=== PATIENT | male | born 1980 | race Caucasian/White ===

== ENCOUNTER 2020-06-24 12:27 | Inpatient (IN) | payer OTHER ==
[~2020-06-24] VITALS: Ht 167.6 cm; Wt 170.3 kg
--- NOTE | 2020-06-24 12:49 | NUR ---
RECEIVED FROM TRIAGE WITH C/O CELLULITIS OF BLE AND PAIN AT UMBILICUS/HERNIA. NOTED OPEN WOUND ON LEFT LOWER LEG AND CRUSTY/WHITE PATCHES ON BACK OF RIGHT LEG. BILATERAL LOWER LEGS ARE RED WITH COBBLESTONE APPEARANCE AND DRAIN ACCORDING TO PT. IV SITED IN LEFT HAND WITH 22G. LABS DRAWN. WOUND CULTURE OBTAINED.
[2020-06-24 12:50] VITALS: BP 141/84
[2020-06-24] MEDS ORDERED: LISINOPRIL2.5 MG (12:52)
[2020-06-24 13:49] LABS: CALC OSMOLALITY 278 mosm/kg (275-300); CALCIUM 8.9 mg/dL (8.5-10.1); CHLORIDE - SERUM 100 mmol/L (98-107); CREATININE - SERUM 1.1 mg/dL (0.6-1.3); GLUCOSE 192 mg/dL (74-106); POTASSIUM - SERUM 4.2 mmol/L (3.5-5.1); SODIUM 137 mmol/L (136-145); UREA NITROGEN 13 mg/dL (7-18); eGFR NON AFRICAN AMERICAN 78 mL/min (90-120)
[2020-06-24 13:55] LABS: BASOPHILS 0.5 % (0-2); EOSINOPHILS 6.3 % (0-7); HEMATOCRIT 41.8 % (42.0-54.0); HEMOGLOBIN 13.3 g/dL (13.5-17.5); IMMATURE GRANULOCYTES 0.5 % (0-5); LYMPHOCYTE ABS# 0.88 10x3/uL (1.32-3.57); LYMPHOCYTES 13.9 % (15-50); MCH 28.4 pg (26.0-34.0); MCHC 31.8 g/dL (31.0-37.0); MCV 89.3 fL (80.0-100.0); MEAN PLATELET VOLUME 10.9 fL (7.4-10.4); MONOCYTES 11.7 % (2-11); NEUTROPHIL ABS# 4.23 10x3/uL (1.78-5.38); NEUTROPHILS 67.1 % (40-80); PLATELET COUNT 208 10x3/uL (130-400); RBC 4.68 10x6/uL (4.20-6.10); RDW 14.4 % (11.5-14.5); WBC 6.3 10x3/uL (4.8-10.8)
[2020-06-24 13:56] LABS: ALBUMIN 3.3 g/dL (3.4-5.0); ALKALINE PHOSPHATASE 105 U/L (30-120); ALT (SGPT) 46 U/L (10-68); BILIRUBIN - TOTAL 0.36 mg/dL (0.2-1.3); C-REACTIVE PROTEIN 4.1 mg/dL (0.0-0.9); PROTEIN - SERUM 7.4 g/dL (6.4-8.2)
[2020-06-24 14:10] LABS: INR 1.05 (0.85-1.17); PROTIME 12.7 SECONDS (11.6-15.0)
--- NOTE | 2020-06-24 14:44 | NUR ---
VANC 1.5GM ADMINISTERED VIA IV PUMP. VANC 1GM WAS D/C'D
[2020-06-24 16:09] LABS: ERYTHROCYTE SEDIMENTATION RATE 15 mm/hr (0-15)
[2020-06-24 16:12] VITALS: BP 125/50; Ht 167.6 cm; Wt 170.3 kg
--- NOTE | 2020-06-24 16:57 | NUR ---
RCVED PT FROM ER VIA STRETCHER AND HOSPITAL STAFF. ALERT AND ORIENTED. IV LOCATED TO LEFT HAND CURRENTLY RUNNING NS @ 100ML. V/S STABLE. NO CURRENT S/S OF DISTRESS, DENIES CURRENT NEEDS, WILL CONT TO MONITOR.
[2020-06-24 21:01] VITALS: BP 117/48
--- NOTE | 2020-06-24 22:49 | NUR ---
ASSESSED AT THE BEGINNING OF THE SHIFT. PT IS ALERT AND ORIENTED, ABLE TO VERBALIZE NEEDS. HIS LEGS ARE RED WITH EDEMA AND PAINFUL. HE HAS BEEN GIVEN MORPHINE FOR PAIN ONCE WHEN ASKED FOR, SEE MAR. HIS O2 WAS 88 ON ROOM AIR WHEN VITALS WERE TAKEN AND HE WAS SOB/WHEEZY. MD WAS CALLED AND O2 WAS PLACED ON AT 2 LITERS PER N/C WITH AN ORDER FOR PRN ALBUTEROL TREATMENTS. THIS SEEMS TO HAVE HELPED. HE STATED THAT HE HAD AN ALBUTEROL INHALER AT HOME. HE IS UP TO THE BATHROOM AD CAROL. WE PLACED TELEMETRY ON HIM AND IT IS SR 90'S.
[2020-06-25 01:18] VITALS: BP 84/25
[2020-06-25 06:35] VITALS: BP 119/65
--- NOTE | 2020-06-25 06:43 | NUR ---
PT IS UP IN BATHROOM VOMITING. HE WAS GIVEN ZOFRAN AND SOME BAGS TO USE FOR THE VOMITING.
[2020-06-25 06:48] LABS: BASOPHILS 0.3 % (0-2); EOSINOPHILS 2.2 % (0-7); HEMATOCRIT 40.1 % (42.0-54.0); HEMOGLOBIN 12.5 g/dL (13.5-17.5); IMMATURE GRANULOCYTES 0.3 % (0-5); LYMPHOCYTE ABS# 1.06 10x3/uL (1.32-3.57); LYMPHOCYTES 12.1 % (15-50); MCH 28.5 pg (26.0-34.0); MCHC 31.2 g/dL (31.0-37.0); MEAN PLATELET VOLUME 10.9 fL (7.4-10.4); MONOCYTES 8.9 % (2-11); NEUTROPHIL ABS# 6.68 10x3/uL (1.78-5.38); NEUTROPHILS 76.2 % (40-80); PLATELET COUNT 226 10x3/uL (130-400); RBC 4.39 10x6/uL (4.20-6.10); RDW 14.5 % (11.5-14.5)
[2020-06-25 07:00] LABS: MCV 91.3 fL (80.0-100.0); WBC 8.8 10x3/uL (4.8-10.8)
[2020-06-25 07:41] LABS: ALBUMIN 2.9 g/dL (3.4-5.0); ANION GAP 10.6 mmol/L (8-16); BILIRUBIN - TOTAL 0.39 mg/dL (0.2-1.3); CALCIUM 8.2 mg/dL (8.5-10.1); CARBON DIOXIDE 29.7 mmol/L (21.0-32.0); CREATININE - SERUM 1.3 mg/dL (0.6-1.3); PHOSPHOROUS 3.2 mg/dL (2.5-4.9); POTASSIUM - SERUM 4.3 mmol/L (3.5-5.1); PROTEIN - SERUM 6.6 g/dL (6.4-8.2)
--- NOTE | 2020-06-25 08:00 | NUR ---
PT EASILY AWAKENED. CL IN REACH. NO NEEDS AT THIS TIME. WCTM
[2020-06-25 09:11] VITALS: BP 124/45
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
[2020-06-25 13:20] VITALS: BP 122/53
[2020-06-25 18:27] VITALS: BP 116/59
--- NOTE | 2020-06-25 19:00 | NUR ---
BEDSIDE REPORT RECEIVED AND CARE OF PT ASSUMED. PT LYING IN LOW MORALES'S POSITION. IV TO LEFT HAND PATENT WITH NS INFUSING AT 100 ML/HR. TELEMETRY IN PLACE AND READING SR AT THIS ASSESSMENT. WILL MONITOR FOR NEEDS.
--- NOTE | 2020-06-25 20:49 | NUR ---
HS MEDICATIONS GIVEN. WILL CONTINUE TO MONITOR FOR NEEDS.
[2020-06-25 22:08] VITALS: BP 115/54
--- NOTE | 2020-06-25 23:48 | NUR ---
GAVE ZPFRAM 4 MG IVP FOR VOMITING. WILL MONITOR FOR EFFECTIVENESS.
--- NOTE | 2020-06-26 02:43 | NUR ---
PT C/O IV IN LEFT HAND GETTING SORE. REMOVED WITH CATHETER TIP INTACT. RE-SITED IV TO RIGHT FA / AC AREA USING 20 GUAGE CATHETER IN ONE STICK. IV FLUIDS RE-STARTED.
--- NOTE | 2020-06-26 04:14 | NUR ---
PT WITH NAUSEA / VOMITING/ DRY HEAVING AGAIN. GAVE ZOFRAN 4 MG IVP PER PRN ORDER. WILL CONTINUE TO MONITOR KJ.
[2020-06-26 05:54] VITALS: BP 122/43
[2020-06-26 06:38] LABS: ALBUMIN 2.9 g/dL (3.4-5.0); ALKALINE PHOSPHATASE 82 U/L (30-120); ALT (SGPT) 38 U/L (10-68); BILIRUBIN - TOTAL 0.45 mg/dL (0.2-1.3); CALC OSMOLALITY 278 mosm/kg (275-300); CARBON DIOXIDE 29.4 mmol/L (21.0-32.0); CHLORIDE - SERUM 101 mmol/L (98-107); GLUCOSE 172 mg/dL (74-106); MAGNESIUM - SERUM 2.3 mg/dL (1.8-2.4); PHOSPHOROUS 2.4 mg/dL (2.5-4.9); POTASSIUM - SERUM 4.3 mmol/L (3.5-5.1); PROTEIN - SERUM 6.7 g/dL (6.4-8.2); SODIUM 137 mmol/L (136-145); UREA NITROGEN 16 mg/dL (7-18); eGFR NON AFRICAN AMERICAN 87 mL/min (90-120)
--- NOTE | 2020-06-26 08:26 | NUR ---
PT CO OF HEADACHE PAIN LEVEL AT A 4/10 ON THE PAIN SCALE. GAVE A COUPLE ICE PACKS FOR HEADACHE AND WILL SEE IF PT HAS TYLENOL AND IF SO ADMINISTER. CL IN REACH. NO FURTHER NEEDS AT THIS TIME. WCTM
[2020-06-26 09:42] VITALS: BP 111/50
[2020-06-26 10:18] LABS: BASOPHILS 0.3 % (0-2); EOSINOPHILS 1.2 % (0-7); HEMATOCRIT 40.3 % (42.0-54.0); HEMOGLOBIN 12.4 g/dL (13.5-17.5); IMMATURE GRANULOCYTES 0.4 % (0-5); LYMPHOCYTE ABS# 1.04 10x3/uL (1.32-3.57); LYMPHOCYTES 10.5 % (15-50); MCH 28.7 pg (26.0-34.0); MCHC 30.8 g/dL (31.0-37.0); MEAN PLATELET VOLUME 11.1 fL (7.4-10.4); MONOCYTES 10.8 % (2-11); NEUTROPHIL ABS# 7.63 10x3/uL (1.78-5.38); NEUTROPHILS 76.8 % (40-80); PLATELET COUNT 213 10x3/uL (130-400); RBC 4.32 10x6/uL (4.20-6.10); RDW 14.6 % (11.5-14.5); WBC 9.9 10x3/uL (4.8-10.8)
[2020-06-26 10:19] LABS: MCV 93.3 fL (80.0-100.0)
[2020-06-26 14:35] VITALS: BP 116/55
[2020-06-26 18:35] VITALS: BP 112/54
--- NOTE | 2020-06-26 19:00 | NUR ---
BEDSIDE REPORT RECEIVED AND CARE OF PT ASSUMED. PT LYING IN LOW MORALES'S POSITION. IV TO LEFT FA PATENT WITH NS INFUSING AT 100 ML/HR, AND ZOFRAN INFUSING AT 4.7 ML/HR.WILL MONITOR FOR NEEDS.
--- NOTE | 2020-06-26 19:15 | NUR ---
GAVE PT CLEAN URINAL TO PROVIDE URINE SAMPLE FOR ORDERED STUDIES.
[2020-06-26 20:00] VITALS: BP 124/54
--- NOTE | 2020-06-26 20:26 | NUR ---
HS MEDICATIONS GIVEN. PT DECLINES NEED FOR PAIN MEDICATIONS AT THIS TIME.
--- NOTE | 2020-06-26 23:59 | NUR ---
PT SHOWERED AND ALL LINENS AND GOWN CHANGED.
[2020-06-27] VITALS: BP 124/50
--- NOTE | 2020-06-27 01:23 | NUR ---
COLLECTED URINE SAMPLE FOR ORDERED STUDIES AND DELIVERED TO LAB.
[2020-06-27 01:31] LABS: BILIRUBIN NEGATIVE (NEGATIVE); KETONE NEGATIVE (NEGATIVE); NITRITE NEGATIVE (NEGATIVE); UROBILINOGEN NORMAL mg/dL (< 2)
--- NOTE | 2020-06-27 02:39 | NUR ---
PT REQUESTING AN UPDRAFT TREATMENT....RT NOTIFIED.
--- NOTE | 2020-06-27 02:53 | NUR ---
GAVE NORCO PO AND A COLA FOR C/O HEADACHE AT LEVEL 8/10. WILL MONITOR FOR EFFECTIVENESS.
--- NOTE | 2020-06-27 02:54 | NUR ---
IV TO LEFT FA SWELLING AND LEAKING. REMOVED WITH CATHETER TIP INTACT. RE-STARTED FLUIDS TO EXISTING IV IN RIGHT AC.
[2020-06-27 04:00] VITALS: BP 104/51
[2020-06-27 06:00] LABS: BASOPHILS 0.4 % (0-2); EOSINOPHILS 4.6 % (0-7); HEMATOCRIT 38.4 % (42.0-54.0); HEMOGLOBIN 12.1 g/dL (13.5-17.5); IMMATURE GRANULOCYTES 0.2 % (0-5); LYMPHOCYTE ABS# 0.83 10x3/uL (1.32-3.57); LYMPHOCYTES 10.1 % (15-50); MCH 28.7 pg (26.0-34.0); MCHC 31.5 g/dL (31.0-37.0); MEAN PLATELET VOLUME 11.3 fL (7.4-10.4); NEUTROPHIL ABS# 6.24 10x3/uL (1.78-5.38); NEUTROPHILS 75.7 % (40-80); PLATELET COUNT 182 10x3/uL (130-400); RBC 4.22 10x6/uL (4.20-6.10); RDW 14.5 % (11.5-14.5); WBC 8.2 10x3/uL (4.8-10.8)
[2020-06-27 06:19] LABS: ALBUMIN 2.8 g/dL (3.4-5.0); ALKALINE PHOSPHATASE 72 U/L (30-120); ALT (SGPT) 31 U/L (10-68); BILIRUBIN - TOTAL 0.32 mg/dL (0.2-1.3); CALC OSMOLALITY 281 mosm/kg (275-300); CALCIUM 7.9 mg/dL (8.5-10.1); CHLORIDE - SERUM 103 mmol/L (98-107); CREATININE - SERUM 0.9 mg/dL (0.6-1.3); GLUCOSE 132 mg/dL (74-106); MAGNESIUM - SERUM 2.2 mg/dL (1.8-2.4); PHOSPHOROUS 1.9 mg/dL (2.5-4.9); POTASSIUM - SERUM 4.2 mmol/L (3.5-5.1); PROTEIN - SERUM 6.3 g/dL (6.4-8.2); SODIUM 140 mmol/L (136-145); UREA NITROGEN 14 mg/dL (7-18); eGFR NON AFRICAN AMERICAN > 90 mL/min (90-120)
--- NOTE | 2020-06-27 07:21 | NUR ---
RECIEVED BEDSIDE REPORT. PATIENT SLEEPING. FREE FROM SIGNS OF DISTRESS. BED LOW POSITION, CALL LIGHT IN REACH. WILL CONITNUE TO MONITOR.
[2020-06-27 08:00] VITALS: BP 141/75
--- NOTE | 2020-06-27 19:15 | NUR ---
PATIENT RESTING IN BED WITH NO S/S OF DISTRESS AND DENIES NEEDS AT THIS TIME. BED IN LOWEST POSITION AND CALL LIGHT IN REACH. ENCOURAGED PATIENT TO CALL WITH NEEDS.
[2020-06-27 19:38] VITALS: BP 146/67
--- NOTE | 2020-06-27 20:03 | NUR ---
PATIENT REFUSED SENNA, STATED HE HAD SIX BOWEL MOVEMENTS TODAY. PATIENT DENIES OTHER NEEDS AT THIS TIME. BED IN LOWEST POSITION AND CALL LIGHT IN REACH. ENCOURAGED PATIENT TO CALL WITH NEEDS.
[2020-06-28 03:18] VITALS: BP 140/60
[2020-06-28 05:25] LABS: EOSINOPHILS 6.6 % (0-7); HEMATOCRIT 34.8 % (42.0-54.0); HEMOGLOBIN 11.7 g/dL (13.5-17.5); LYMPHOCYTES 12.4 % (15-50); MCH 28.8 pg (26.0-34.0); MCHC 33.6 g/dL (31.0-37.0); MEAN PLATELET VOLUME 8.7 fL (7.4-10.4); PLATELET COUNT 183 10x3/uL (130-400); RBC 4.05 10x6/uL (4.20-6.10); RDW 15.1 % (11.5-14.5); WBC 6.6 10x3/uL (4.8-10.8)
[2020-06-28 05:34] LABS: MCV 85.9 fL (80.0-100.0)
[2020-06-28 06:09] LABS: ALBUMIN 2.7 g/dL (3.4-5.0); ALKALINE PHOSPHATASE 74 U/L (30-120); ALT (SGPT) 33 U/L (10-68); BILIRUBIN - TOTAL 0.36 mg/dL (0.2-1.3); CALC OSMOLALITY 282 mosm/kg (275-300); CALCIUM 7.9 mg/dL (8.5-10.1); CARBON DIOXIDE 27.9 mmol/L (21.0-32.0); CHLORIDE - SERUM 105 mmol/L (98-107); GLUCOSE 146 mg/dL (74-106); MAGNESIUM - SERUM 2.3 mg/dL (1.8-2.4); PHOSPHOROUS 2.5 mg/dL (2.5-4.9); POTASSIUM - SERUM 3.9 mmol/L (3.5-5.1); SODIUM 140 mmol/L (136-145); UREA NITROGEN 14 mg/dL (7-18); eGFR NON AFRICAN AMERICAN 87 mL/min (90-120)
[2020-06-28 10:12] VITALS: BP 140/90
[2020-06-28] MEDS ORDERED: DOXYCYCLINE HY100 M2 PO (11:50)
[2020-06-28 12:29] VITALS: BP 130/52
--- NOTE | 2020-06-28 14:40 | NUR ---
I have reviewed this patient and I concur with the Shift Assessment completed by the Licensed Practical Nurse today this shift.
== END 2020-06-28 15:32 | disposition home or self-care (01) | DRG 603 ==
LOC: D.ER 12:27 → D.MS 14:16
PROVIDERS: Family Medicine; ADMIT Emergency Medicine; ATTEND Emergency Medicine
DX: L03.115 Cellulitis of right lower limb (principal); Z68.41 Body mass index [BMI] 40.0-44.9, adult; K43.6 Other and unspecified ventral hernia with obstruction, without gangrene; L03.116 Cellulitis of left lower limb; E66.01 Morbid (severe) obesity due to excess calories; I10 Essential (primary) hypertension; E03.9 Hypothyroidism, unspecified; F32.9 Major depressive disorder, single episode, unspecified; F41.9 Anxiety disorder, unspecified

== ENCOUNTER 2020-07-27 08:06 | Day surgery (SDC) | payer OTHER ==
[~2020-07-27] VITALS: Ht 167.6 cm; Wt 162.4 kg
[~2020-07-27 08:06] MED LIST: CELEXA10 MG PO; DOXYCYCLINE HY100 M2 PO; LISINOPRIL2.5 MG; PROAIR HFA8.5 G1 INH
[2020-07-27 08:34] LABS: BASOPHILS 0.9 % (0-2); EOSINOPHILS 4.8 % (0-7); HEMATOCRIT 45.9 % (42.0-54.0); HEMOGLOBIN 15.2 g/dL (13.5-17.5); MCHC 33.1 g/dL (31.0-37.0); MCV 84.8 fL (80.0-100.0); MEAN PLATELET VOLUME 8.4 fL (7.4-10.4); MONOCYTES 9.5 % (2-11); NEUTROPHILS 72.8 % (40-80); RBC 5.41 10x6/uL (4.20-6.10); RDW 15.5 % (11.5-14.5); WBC 11.8 10x3/uL (4.8-10.8)
[2020-07-27 08:53] LABS: PLATELET COUNT 228 10x3/uL (130-400)
[2020-07-27] MEDS ORDERED: LISINOPRIL10 MG PO (09:13)
[2020-07-27] MEDS ORDERED: SYNTHROID25 MCG PO (09:15)
[2020-07-27] MEDS ORDERED: MOBIC7.5 MG PO (09:15)
[2020-07-27 09:16] VITALS: BP 116/65; Ht 167.6 cm; Wt 162.4 kg
--- NOTE | 2020-07-27 14:23 | NUR ---
DR KWAN AT BEDSIDE TO CONSULT FOR ALTERNATIVE PAIN CONTROL BEFORE D/C FROM PACU. ORDERS RECEIVED AND IMPLEMENTED.
[2020-07-27] MEDS ORDERED: TYLENOL W/CODEI1 TAB PO (14:47)
[2020-07-27] MEDS ORDERED: BACTRIM DS TAB1 EAC1 PO (14:48)
--- NOTE | 2020-07-27 15:06 | NUR ---
TYLENOL # 3 PO 1 TABLET GIVEN FOR PAIN, 06/20.
--- NOTE | 2020-07-27 15:38 | NUR ---
PT STATES PAIN ACTUALLY WENT UP TO 6/10 AFTER RECEIVING TYLENOL #3 TAB.
--- NOTE | 2020-07-27 16:40 | NUR ---
PT STATES PAIN NOW DOWN TO 4/10. ASSISTED PT TO AMBULATE TO BATHROOM. ABLE TO VOID. MIDLINE IV THEN DC'D WITH CATHETER INTACT. PT GETTING DRESSED FOR DISCHARGE. DRESSING TO ABD REMAINS CDI WITH ABD BINDER IN PLACE.
--- NOTE | 2020-07-27 16:57 | NUR ---
DISCHARGED VIA W/C, ACCOMPANIED BY JOE CRUZ, TO [facility] WITH SPOUSE DRIVING. ALL BELONGINGS WITH PT.
== END 2020-07-27 16:57 | disposition home or self-care (01) ==
LOC: D.OPS 08:06
PROVIDERS: Anesthesiology; ATTEND Surgery
DX: K43.6 Other and unspecified ventral hernia with obstruction, without gangrene (principal); J98.4 Other disorders of lung; E66.01 Morbid (severe) obesity due to excess calories

== ENCOUNTER 2020-08-13 20:07 | Inpatient (IN) | payer OTHER ==
[~2020-08-13] VITALS: Ht 167.6 cm; Wt 159.7 kg
[~2020-08-13 20:07] MED LIST changes: +BACTRIM DS TAB1 EAC1 PO; +LISINOPRIL10 MG PO; +MOBIC7.5 MG PO; +SYNTHROID25 MCG PO; +TYLENOL W/CODEI1 TAB PO
[2020-08-13 21:31] VITALS: BP 144/68
[2020-08-13 21:40] LABS: ANION GAP 13.4 mmol/L (8-16); CALCIUM 9.1 mg/dL (8.5-10.1); CARBON DIOXIDE 26.6 mmol/L (21.0-32.0); CREATININE - SERUM 1.4 mg/dL (0.6-1.3)
[2020-08-13 21:52] LABS: ALBUMIN 2.9 g/dL (3.4-5.0); BILIRUBIN - TOTAL 0.29 mg/dL (0.2-1.3); PROTEIN - SERUM 7.6 g/dL (6.4-8.2)
[2020-08-13 22:05] LABS: BASOPHILS 0.6 % (0-2); EOSINOPHILS 4.4 % (0-7); HEMATOCRIT 37.1 % (42.0-54.0); HEMOGLOBIN 12.2 g/dL (13.5-17.5); LYMPHOCYTES 6.3 % (15-50); MCH 27.8 pg (26.0-34.0); MCHC 32.9 g/dL (31.0-37.0); MCV 84.7 fL (80.0-100.0); MEAN PLATELET VOLUME 9.2 fL (7.4-10.4); MONOCYTES 8.7 % (2-11); PLATELET COUNT 246 10x3/uL (130-400); RBC 4.37 10x6/uL (4.20-6.10); RDW 15.4 % (11.5-14.5); WBC 13.6 10x3/uL (4.8-10.8)
[2020-08-13 22:54] LABS: ERYTHROCYTE SEDIMENTATION RATE 74 mm/hr (0-15)
[2020-08-13 23:23] VITALS: BP 114/41
--- NOTE | 2020-08-14 00:22 | NUR ---
RECEIVED TO ROOM VIA [facility] FROM ER. ALERT.ORIENTED.NO COMPLAINTS AT PRESENT. MID ABD INCISION RED,WARM WITH BROWNISH/RED DRAINAGE NOTED SEEPING FROM TOP OF INCISION.4X4 DRESSING PLACED FOR COLLECTION OF DRAINAGE. CL IN REACH
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
[2020-08-14 00:40] VITALS: BP 119/57; BMI 56.9
[2020-08-14 04:00] VITALS: BP 121/63
[2020-08-14 05:41] LABS: BILIRUBIN NEGATIVE (NEGATIVE); KETONE NEGATIVE mg/dL (< 1+); NITRITE NEGATIVE (NEGATIVE); PH 5.5 (5.0-8.0); UROBILINOGEN NORMAL mg/dL (< 2)
[2020-08-14 06:36] LABS: APTT 45.7 SECONDS (22.8-39.4); INR 1.32 (0.85-1.17); PROTIME 15.2 SECONDS (11.6-15.0)
[2020-08-14 07:26] LABS: CKMB 1.3 U/L (0.0-3.6); CREATINE KINASE 154 UL (21-232); MAGNESIUM - SERUM 2.1 mg/dL (1.8-2.4)
[2020-08-14 07:33] LABS: TROPONIN-I < 0.017 ng/mL (0.000-0.060)
--- NOTE | 2020-08-14 07:44 | NUR ---
RESTING IN BED WITH EYES CLOSED RESTING COMFORTABLY WITH NO CURRENT S/S OF DISTRESS AT THIS TIME. IV LOCATED TO RIGHT FA CURRENTLY RUNNING 2NS @ 75. WILL CONT TO MONITOR.
[2020-08-14 09:52] VITALS: BP 153/66
--- NOTE | 2020-08-14 11:30 | NUR ---
PT IS AGGITATED AND REFUSED VITALS TO BE TAKEN DUE TO NOT BEING ALLOWED TO EAT.
--- NOTE | 2020-08-14 12:51 | NUR ---
DRESSING CHANGED TO ABDOMEN PER .
--- NOTE | 2020-08-14 13:54 | NUR ---
ASSOCIATE FIELD SERVICE ENGINEER STARTED. WILL CONT TO MONITOR.
[2020-08-14 16:14] LABS: BASOPHILS 0.4 % (0-2); EOSINOPHILS 4.9 % (0-7); HEMATOCRIT 36.5 % (42.0-54.0); LYMPHOCYTES 7.8 % (15-50); MCH 28.1 pg (26.0-34.0); MCHC 32.9 g/dL (31.0-37.0); MCV 85.3 fL (80.0-100.0); MEAN PLATELET VOLUME 8.3 fL (7.4-10.4); MONOCYTES 9.8 % (2-11); NEUTROPHILS 77.1 % (40-80); PLATELET COUNT 246 10x3/uL (130-400); RBC 4.28 10x6/uL (4.20-6.10); RDW 15.5 % (11.5-14.5)
[2020-08-14 16:20] LABS: ANION GAP 10.6 mmol/L (8-16); CALCIUM 8.3 mg/dL (8.5-10.1); CARBON DIOXIDE 29.3 mmol/L (21.0-32.0); CREATININE - SERUM 1.2 mg/dL (0.6-1.3); POTASSIUM - SERUM 3.9 mmol/L (3.5-5.1)
[2020-08-14 16:26] LABS: ALBUMIN 2.5 g/dL (3.4-5.0); BILIRUBIN - TOTAL 0.22 mg/dL (0.2-1.3); PROTEIN - SERUM 6.9 g/dL (6.4-8.2)
[2020-08-14 16:42] LABS: WBC 9.7 10x3/uL (4.8-10.8)
[2020-08-14 17:08] VITALS: BP 107/49
[2020-08-14 20:00] VITALS: BP 101/73
--- NOTE | 2020-08-14 22:00 | NUR ---
IV TO RIGHT HAND SWOLLEN AND EDEMATOUS. PT REPORTS DISCOMFORT. DCd, CATH INTACT. 20G SITED TO LEFT FOREARM, 1ST ATTEMPT, CTM.
[2020-08-15] VITALS (7 sets, daily range): BP systolic 104–134; BP diastolic 50–81; Ht 167.6 cm; Wt 159.7 kg
--- NOTE | 2020-08-15 03:55 | NUR ---
I have reviewed this patient and I concur with the Shift Assessment completed by the Licensed Practical Nurse today this shift.
[2020-08-15 05:46] LABS: BASOPHILS 0.6 % (0-2); EOSINOPHILS 3.4 % (0-7); HEMATOCRIT 35.9 % (42.0-54.0); HEMOGLOBIN 11.7 g/dL (13.5-17.5); LYMPHOCYTES 7.7 % (15-50); MCH 27.6 pg (26.0-34.0); MCHC 32.7 g/dL (31.0-37.0); MCV 84.5 fL (80.0-100.0); MEAN PLATELET VOLUME 8.6 fL (7.4-10.4); MONOCYTES 12.8 % (2-11); NEUTROPHILS 75.5 % (40-80); PLATELET COUNT 279 10x3/uL (130-400); RBC 4.24 10x6/uL (4.20-6.10)
[2020-08-15 05:48] LABS: WBC 12.3 10x3/uL (4.8-10.8)
[2020-08-15 06:09] LABS: ALBUMIN 2.4 g/dL (3.4-5.0); ANION GAP 13.9 mmol/L (8-16); BILIRUBIN - TOTAL 0.3 mg/dL (0.2-1.3); CALCIUM 8.4 mg/dL (8.5-10.1); CARBON DIOXIDE 24.8 mmol/L (21.0-32.0); CREATININE - SERUM 1.3 mg/dL (0.6-1.3); MAGNESIUM - SERUM 1.9 mg/dL (1.8-2.4); POTASSIUM - SERUM 3.7 mmol/L (3.5-5.1); PROTEIN - SERUM 6.8 g/dL (6.4-8.2)
--- NOTE | 2020-08-15 14:00 | NUR ---
IV RESTARTED IN RIGHT WRIST BY ESTEPHANIA BARRIENTOS. LEFT FA IV LEAKING. PATIENT TOLERATED WITH NO PAIN. CALL LIGHT WITHIN REACH.
--- NOTE | 2020-08-15 18:45 | NUR ---
PATIEN TIN BED WITH IV INTACT. NO COMPLAINTS OR SIGNS OF DISTRESS. CALL LIGHT WITHIN REACH.
--- NOTE | 2020-08-15 19:56 | NUR ---
PATIENT RESTING IN BED WITH NO S/S OF DISTRESS AND DENIES NEEDS AT THIS TIME. BED IN LOWEST POSITION AND CALL LIGHT IN REACH. ENCOURAGED PATIENT TO CALL WITH NEEDS.
--- NOTE | 2020-08-15 20:58 | NUR ---
ADMINISTERED MEDS PER ORDERS. PATIENT JOEL WELL. ENCOURAGED TO CALL WITH NEEDS.
[2020-08-16 03:40] VITALS: BP 118/70
[2020-08-16 05:19] LABS: BASOPHILS 0.3 % (0-2); EOSINOPHILS 5.4 % (0-7); HEMATOCRIT 34.1 % (42.0-54.0); HEMOGLOBIN 10.9 g/dL (13.5-17.5); LYMPHOCYTES 9.1 % (15-50); MCH 27.5 pg (26.0-34.0); MCHC 32.1 g/dL (31.0-37.0); MCV 85.8 fL (80.0-100.0); MEAN PLATELET VOLUME 8.4 fL (7.4-10.4); MONOCYTES 9.3 % (2-11); NEUTROPHILS 75.9 % (40-80); PLATELET COUNT 300 10x3/uL (130-400); RBC 3.98 10x6/uL (4.20-6.10); RDW 15.3 % (11.5-14.5); WBC 13.3 10x3/uL (4.8-10.8)
[2020-08-16 05:59] LABS: ALBUMIN 2.3 g/dL (3.4-5.0); BILIRUBIN - TOTAL 0.2 mg/dL (0.2-1.3); CARBON DIOXIDE 26.9 mmol/L (21.0-32.0); CREATININE - SERUM 1.4 mg/dL (0.6-1.3); MAGNESIUM - SERUM 2.2 mg/dL (1.8-2.4); POTASSIUM - SERUM 3.9 mmol/L (3.5-5.1); PROTEIN - SERUM 6.6 g/dL (6.4-8.2)
[2020-08-16 08:51] VITALS: BP 100/43
--- NOTE | 2020-08-16 10:00 | NUR ---
PATIENT ASKING FOR BREAKFAST TRAY. INCISION CLEAN OUT DONE AT BEDSIDE BY DR. KWAN. ORDERED TRAY FOR BREAKFAST. PATIENT ABDOMEN DRESSING CLEAN AND DRY. NEW ORDERS FOR WOUND VAC BY DR. KWAN. PATIENT IN BED WITH NO COMPLAINTS. CALL LIGHT WITHIN REAC.
[2020-08-16 13:10] VITALS: BP 111/40
[2020-08-16] MEDS ORDERED: FLORAJEN DIGES1 EACH PO (15:18)
[2020-08-16] MEDS ORDERED: PROTONIX40 MG PO (15:18)
[2020-08-16] MEDS ORDERED: NICODERM CQ1 EAC3 TRANSDERM (15:18)
--- NOTE | 2020-08-16 15:20 | NUR ---
DR. KWAN PLACED PATIENT WOUND VAC AT THIS TIME.
[2020-08-16] MEDS ORDERED: TYLENOL W/CODEI1 TAB PO (15:57)
[2020-08-16] MEDS ORDERED: BACTRIM DS TAB1 EAC1 PO (15:58)
--- NOTE | 2020-08-16 16:05 | MORECARE ---
CASE MANAGEMENT DISCHARGE SUMMARY PATIENT: RAHEEM LOVELL UNIT: [id number] ADM DATE: 08/13/20 AGE: 40 : 78 SEX: M ROOM/BED: D.2205 AUTHOR: NAIF,DOC PHYSICIAN: REFERRING PHYSICIAN: VANDANA VELIZ MD DATE OF SERVICE: 08/16/20 Case Management Discharge Planning Summary DCP REVIEW SUMMARY ANTICIPATED D/C DATE: EXPECTED LOS : CASE STATUS: DCP Initiated INITIAL REVIEW: 08/13/2020 INITIAL REVIEWER: Doreen Bagley FINAL DISCHARGE DISPOSITION: : FINAL REVIEWER: FINAL REVIEW DATE: DCP Focus Questions & Answers DCP Screen QUESTION: ANSWER High Risk Factors: : None DCP Evaluation QUESTION: ANSWER Patient's ability to cope with chronic illness : d. No chronic illness Would patient like to participate in any Care Coordination programs (if applicable): : Not applicable Mental health screen: : No mental health history DCP Re-evaluation QUESTION: ANSWER Would patient like to participate in any Care Coordination programs (if applicable): : Not applicable PATIENT: RAHEEM LOVELL ENCOUNTER: [id number] MEDICAL RECORD#: [id number] ADMISSION DATE: 08/13/2020 DISCHARGE DATE: ATTENDING MD: : AGE: 40 MARITAL STATUS: S DC PLAN ID: [id number] FACILITY: [facility] PRINTED ON: 08/16/20 16:05 CT All edits/amendments must be made on the electronic document DICTATION DATE: 08/16/20 160 MACHINE OPERATOR REPLANTER: JILLIAN 08/16/20 1605 RPT#: [id number] DC DATE: STATUS: ADM IN [facility] [address] [place] [address] END OF REPORT
--- NOTE | 2020-08-16 16:16 | MORECARE ---
CASE MANAGEMENT DISCHARGE SUMMARY PATIENT: RAHEEM LOVELL UNIT: [id number] ADM DATE: 08/13/20 AGE: 40 : 78 SEX: M ROOM/BED: D.2205 AUTHOR: NAIF,DOC PHYSICIAN: REFERRING PHYSICIAN: VANDANA VEILZ MD DATE OF SERVICE: 08/16/20 Case Management Discharge Planning Summary COMMENTS ENTERED DATE: 08/16/20 16:10 CT COMMENT TYPE: Discharge Planning REVIEWER: Doreen Bagley CM MET WITH PATIENT TO DISCUSS DC PLANNING/NEEDS. PATIENT WILL NEED HOME HEALTH FOR WOUND CARE AND DRESSING CHANGES. REFERRAL AND ORDERS HAVE BEEN FAXED TO [address] PATIENT STATES HIS FIANCEE WILL TAKE HIM TO APPOINTMENTS. DENIES NEED FOR MEDICAL EQUIPMENT OR REHAB. PATIENT PLANS TO DC TO HOME TODAY. CM TO FOLLOW AND ASSIST NEEDED. DCP REVIEW SUMMARY ANTICIPATED D/C DATE: EXPECTED LOS : CASE STATUS: DCP Initiated INITIAL REVIEW: 08/13/2020 INITIAL REVIEWER: Doreen Bagley FINAL DISCHARGE DISPOSITION: : FINAL REVIEWER: FINAL REVIEW DATE: DCP Focus Questions & Answers DCP Screen QUESTION: ANSWER High Risk Factors: : None DCP Evaluation QUESTION: ANSWER Patient's ability to cope with chronic illness : d. No chronic illness Would patient like to participate in any Care Coordination programs (if applicable): : Not applicable Mental health screen: : No mental health history DCP Re-evaluation QUESTION: ANSWER Would patient like to participate in any Care Coordination programs (if applicable): : Not applicable PATIENT: RAHEEM LOVELL ENCOUNTER: [id number] MEDICAL RECORD#: [id number] ADMISSION DATE: 08/13/2020 DISCHARGE DATE: ATTENDING MD: : AGE: 40 MARITAL STATUS: S DC PLAN ID: [id number] FACILITY: [facility] PRINTED ON: 08/16/20 16:16 CT All edits/amendments must be made on the electronic document DICTATION DATE: 08/16/201615 CARPET REPAIRER: JILLIAN 08/16/201615 RPT#: [id number] DC DATE: STATUS: ADM IN [facility] [address] [place] [address] END OF REPORT
--- NOTE | 2020-08-16 17:15 | NUR ---
PATIENT RECIEVED DC INSTRUCTIONS. IV REMOVED EARLIER DUE TO LEAKING WITH CATH TIP INTACT. EXPLAINED MEDICATIONS ARE CALLED INTO PHARMACY. VERBALIZED UNDERSTANDING. CALL LIGHT WITHIN REACH. WAITING FOR DC TRANSPORTATION.
--- NOTE | 2020-08-16 18:42 | MORECARE ---
CASE MANAGEMENT DISCHARGE SUMMARY PATIENT: RAHEEM LOVELL UNIT: [id number] ADM DATE: 08/13/20 AGE: 40 : 78 SEX: M ROOM/BED: D.2205 AUTHOR: NAIF,DOC PHYSICIAN: REFERRING PHYSICIAN: VANDANA VELIZ MD DATE OF SERVICE: 08/16/20 Case Management Discharge Planning Summary COMMENTS ENTERED DATE: 08/16/20 16:10 CT COMMENT TYPE: Discharge Planning REVIEWER: Doreen Bagley CM MET WITH PATIENT TO DISCUSS DC PLANNING/NEEDS. PATIENT WILL NEED HOME HEALTH FOR WOUND CARE AND DRESSING CHANGES. REFERRAL AND ORDERS HAVE BEEN FAXED TO [address] PATIENT STATES HIS FIANCEE WILL TAKE HIM TO APPOINTMENTS. DENIES NEED FOR MEDICAL EQUIPMENT OR REHAB. PATIENT PLANS TO DC TO HOME TODAY. CM TO FOLLOW AND ASSIST NEEDED. DCP REVIEW SUMMARY ANTICIPATED D/C DATE: EXPECTED LOS : CASE STATUS: DCP Initiated INITIAL REVIEW: 08/13/2020 INITIAL REVIEWER: Doreen Bagley FINAL DISCHARGE DISPOSITION: : FINAL REVIEWER: FINAL REVIEW DATE: DCP Focus Questions & Answers DCP Screen QUESTION: ANSWER High Risk Factors: : None DCP Evaluation QUESTION: ANSWER Patient's ability to cope with chronic illness : d. No chronic illness Would patient like to participate in any Care Coordination programs (if applicable): : Not applicable Mental health screen: : No mental health history DCP Re-evaluation QUESTION: ANSWER Would patient like to participate in any Care Coordination programs (if applicable): : Not applicable PATIENT: RAHEEM LOVELL ENCOUNTER: [id number] MEDICAL RECORD#: [id number] ADMISSION DATE: 08/13/2020 DISCHARGE DATE: 08/16/2020 ATTENDING MD: : AGE: 40 MARITAL STATUS: S DC PLAN ID: [id number] FACILITY: [facility] PRINTED ON: 08/16/20 18:42 CT All edits/amendments must be made on the electronic document DICTATION DATE: 08/16/201840 LINE ASSEMBLY UTILITY WORKER: JILLIAN 08/16/201840 RPT#: [id number] DC DATE:08/16/20 STATUS: DIS IN [facility] [address] [place] [address] END OF REPORT
--- NOTE | 2020-08-17 13:22 | MORECARE ---
CASE MANAGEMENT DISCHARGE SUMMARY PATIENT: RAHEEM LOVELL UNIT: [id number] ADM DATE: 08/13/20 AGE: 40 : 78 SEX: M ROOM/BED: D.2205 AUTHOR: NAIF,DOC PHYSICIAN: REFERRING PHYSICIAN: VANDANA VELIZ MD DATE OF SERVICE: 08/17/20 Case Management Discharge Planning Summary COMMENTS ENTERED DATE: 08/16/20 16:10 CT COMMENT TYPE: Discharge Planning REVIEWER: Doreen Bagley CM MET WITH PATIENT TO DISCUSS DC PLANNING/NEEDS. PATIENT WILL NEED HOME HEALTH FOR WOUND CARE AND DRESSING CHANGES. REFERRAL AND ORDERS HAVE BEEN FAXED TO [address] PATIENT STATES HIS FIANCEE WILL TAKE HIM TO APPOINTMENTS. DENIES NEED FOR MEDICAL EQUIPMENT OR REHAB. PATIENT PLANS TO DC TO HOME TODAY. CM TO FOLLOW AND ASSIST NEEDED. DCP REVIEW SUMMARY ANTICIPATED D/C DATE: EXPECTED LOS : CASE STATUS: DCP Initiated INITIAL REVIEW: 08/13/2020 INITIAL REVIEWER: Doreen Bagley FINAL DISCHARGE DISPOSITION: : FINAL REVIEWER: FINAL REVIEW DATE: DCP Focus Questions & Answers DCP Screen QUESTION: ANSWER High Risk Factors: : None DCP Evaluation QUESTION: ANSWER Patient's ability to cope with chronic illness : d. No chronic illness Would patient like to participate in any Care Coordination programs (if applicable): : Not applicable Mental health screen: : No mental health history DCP Re-evaluation QUESTION: ANSWER Would patient like to participate in any Care Coordination programs (if applicable): : Not applicable PROVIDER NETWORKING REVIEW DATE: 08/17/2020 SERVICE TYPE: Home Health Care REVIEWER: Doreen Bagley PATIENT: RAHEEM LOVELL ENCOUNTER: [id number] MEDICAL RECORD#: [id number] ADMISSION DATE: 08/13/2020 DISCHARGE DATE: 08/16/2020 ATTENDING MD: : AGE: 40 MARITAL STATUS: S DC PLAN ID: [id number] FACILITY: [facility] PRINTED ON: 08/17/20 13:22 CT All edits/amendments must be made on the electronic document DICTATION DATE: 08/17/20 132 MANAGER DOCUMENT: DM 08/17/20 1322 RPT#: [id number] DC DATE:08/16/20 STATUS: DIS IN [place] [place] [id number] [place] [address] END OF REPORT
== END 2020-08-16 18:35 | disposition home health service (06) | DRG 863 ==
LOC: D.ER 20:07 → D.MS 21:31 → D.EDHOLD 21:31 → D.MS 23:44
PROVIDERS: Emergency Medicine; Family Medicine; ADMIT Family Medicine; ATTEND Family Medicine
PROC: 2W13X6Z Compression of Abdominal Wall using Pressure Dressing (ICD-10-PCS; principal; 2020-08-16)
DX: T81.41XA Infection following a procedure, superficial incisional surgical site, initial encounter (principal); N17.9 Acute kidney failure, unspecified; F17.203 Nicotine dependence unspecified, with withdrawal; Y83.9 Surgical procedure, unspecified as the cause of abnormal reaction of the patient, or of later complication, without mention of misadventure at the time of the procedure; D64.9 Anemia, unspecified; I10 Essential (primary) hypertension; E03.9 Hypothyroidism, unspecified; J45.909 Unspecified asthma, uncomplicated